=== PATIENT | female | born 1965 | race Caucasian/White ===

== ENCOUNTER 2017-01-12 07:45 | Day surgery (SDC) | payer MEDICAID ==
[~2017-01-12 07:45] MED LIST: Sodium Chloride 0.9% 10 ML Syringe FLUSH PRN; Sodium Chloride 0.9% 2.5 ML Syringe FLUSH PRN
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
[2017-01-12] MEDS ORDERED: Propofol 200 MG/20 ML SDV ONE (08:17)
[2017-01-12] MEDS ORDERED: Midazolam 1 MG/ML 2 ML SDV ONE (08:17)
[2017-01-12] MEDS ORDERED: fentaNYL 100 MCG/2 ML SDV ONE (08:17)
[2017-01-12] MEDS ORDERED: Lidocaine 2% 5 ML SDV ONE (08:17)
[2017-01-12] MEDS ORDERED: Lidocaine 1% with EPINEPHrine 1:100,000 20 ML MDV ONE (09:25)
--- NOTE | 2017-01-12 10:07 | PCM.OPNOTE ---
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
--- NOTE | 2017-01-12 10:32 | PCM.POSTAN ---
POST ANESTHESIA ASSESSMENT - MENTAL STATUS Mental Status: Alert, Oriented - RESPIRATORY Respiratory Status: Respiratory Rate WNL, Airway Patent, O2 Saturation Stable - CARDIOVASCULAR CV Status: Pulse Rate WNL, Blood Pressure Stable - GASTROINTESTINAL GI Status: No Symptoms - PAIN Pain Score: 2 - POST OP HYDRATION Hydration Status: Adequate & Stable
--- NOTE | 2017-01-12 10:32 | PCM48HPAN ---
Post Anesthesia Note - EVALUATION WITHIN 48HRS OF ANESTHETIC Vital Signs in Normal Range: Yes Patient Participated in Evaluation: Yes Respiratory Function Stable: Yes Airway Patent: Yes Cardiovascular Function Stable: Yes Hydration Status Stable: Yes Pain Control Satisfactory: Yes Nausea and Vomiting Control Satisfactory: Yes Mental Status Recovered: Yes
--- NOTE | 2017-01-13 11:01 | OR ---
SURGEON: Aure Camacho M.D. 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 Therefore, at this time, I am recommending surgical intervention from a LEEP procedure. Risks of the procedure have been discussed and proper consent was obtained. DESCRIPTION OF PROCEDURE: The patient was taken to the operating room, where she underwent MAC anesthetic. She was placed in modified dorsolithotomy position. Time-out was performed. The patient was prepped. Coated speculum was introduced in the vagina. Cervix was able to be visualized. The cervix was prepped with Lugol solution. The sidewall retractor was now gently placed. Using a 20 x 10 mm loop, after prepping the cervix circumferentially with 1% lidocaine with epinephrine, I was able to remove the posterior lip of the cervix followed by the anterior lip. There was a small remnant of posterior lip along the patient's left side that was also excised, and then a 10-mm endocervical hat was excised. The wound bed was now cauterized. The cervical os was cannulize to help prevent stenosis, and the wound bed was then further treated with Monsel's. Hemostasis appeared evident. The patient tolerated the procedure well. The posterior lip was marked with suture at 6 o'clock and anterior lip at 12 o'clock. These specimens will be sent to Pathology for further analysis, as well as endocervical hat. Sponge count, needle count, and instrument count were correct. The patient tolerated the procedure well. Hemostasis was evident. She will go to PACU in a stable condition. VASQUEZ / SAMARA /[id number]
== END 2017-01-12 10:58 | disposition home or self-care (01) ==
LOC: EDBD 07:45 → MW.SDS 07:45
PROVIDERS: ATTEND Obstetrics & Gynecology
DX: N87.1 Moderate cervical dysplasia (principal); K21.9 Gastro-esophageal reflux disease without esophagitis; E78.5 Hyperlipidemia, unspecified; E03.9 Hypothyroidism, unspecified; Z79.899 Other long term (current) drug therapy; F17.210 Nicotine dependence, cigarettes, uncomplicated; Z98.51 Tubal ligation status; Z98.890 Other specified postprocedural states
CPT/HCPCS: 36415; 57522; 84703; 85027; J2250; J3010; 00940; 88307; J2704